=== PATIENT | male | born 1995 | race Hispanic/Latino ===

== ENCOUNTER 2025-03-16 11:56 | Emergency (ER) | payer SELFPAY ==
[2025-03-16 11:57] VITALS: BP 125/79; PULSE 86; RESP 16; TEMP 36.8; O2SAT 99; BMI 22.8
--- NOTE | 2025-03-16 12:05 | EDS_ITS ---
HPI History of Present Illness Chief Complaint: Eye Problem PFSH PFSH Allergy/AdvReac Type Severity Reaction Status Date / Time No Known Allergies Allergy Verified 03/16/25 11:59 Social History Smoking Status: Current every day smoker tobacco type: cigarettes EXAM Physical Exam Const Vital Signs: 03/16/25 11:57 Temperature 98.2 F Temperature Source Temporal Pulse Rate 86 Respiratory Rate 16 Blood Pressure 125/79 H Blood Pressure Mean 94 Pulse Ox 99 Oxygen Delivery Method Room Air MDM [facility] Narrative Medical decision making narrative: HISTORY OF PRESENT ILLNESS: Chief complaint: Eye foreign body 30-year-old male presents concern for foreign body left eye since Monday. Notes he thinks he may have gotten deodorant inside. This may be something stuck in his eye. Notes itchiness, redness tearing and AM discharge. He does not wear contacts. REVIEW OF SYSTEMS: Pertinent positives: Eye redness, itching and discharge Pertinent negatives: Decreased visual PHYSICAL EXAM: Nursing triage notes reviewed, Vital signs reviewed Constitutional: please see [facility] HENT: MMM Eyes: Pupils equal round and reactive to light, Extraocular muscles intact, visual acuity 20/25, visual de la o intact, fluorescein staining without signs of corneal abrasion or globe rupture. No obvious foreign body on lid eversion. Neck: No stridor, no JVD, full neck ROM Skin: No rash or lesions noted, no sign of preseptal cellulitis MEDICAL DECISION MAKING: Chief Complaint: please see HPI External records reviewed: Reviewed prior imaging Factors affecting care: none Social determinants of health: Primarily Faroese-speaking History obtained from others: [employer] architect used Consults: none [facility] Narrative: The patient was initially hemodynamically stable, afebrile and nontoxic- appearing. Exam consistent with conjunctivitis. No clinical evidence of globe rupture, foreign body or corneal abrasion I considered the following differential diagnosis: Globe rupture, eye foreign body, corneal abrasion, conjunctivitis Will give antimicrobial drops. Will give ophthalmology follow-up. The patient and/or family, caregivers express understanding. The patient and/or family, caregivers agrees with the plan. Shared decision making: I will have a discussion with the patient and or visitors regarding risk/benefits of further testing or admission. They will be made aware of of the risk/benefits inherent in this decision they will be given the opportunity to voice understanding. Total critical care time today provided was at least 0 minutes. This excludes separately billable procedures. Critical care time (if documented) is secondary to the patient having high probability of clinically significant/life th reatening deterioration in the patient's condition which required my urgent intervention. Impression: 1. Left eye redness 2. Acute conjunctivitis Dispo: discharge This note was generated with [employer] dictation software. It may contain incorrect words, spelling, and punctuation that were not noted in review of the chart prior to signing. Discharge Plan Triage Chief Complaint: Eye Problem ED Provider: Oc Garza Dx/Rx/DC Orders Primary Care Provider: Care Physician,No Primary Referrals: Care Physician,No Primary [Primary Care Provider] - Print Language: Ecuadorean
[2025-03-16] MEDS: Tetracaine 0.5% Ophthalmic Bottle 1 DRP EACH EYE (12:25)
[2025-03-16 13:34] VITALS: BP 122/70; PULSE 82; RESP 15; TEMP 36.8; O2SAT 100
== END 2025-03-16 13:35 | disposition home or self-care (01) ==
PROVIDERS: Emergency Provider Emergency Medicine; Visit Provider Emergency Medicine
DX: H10.32 Unspecified acute conjunctivitis, left eye (principal); F17.210 Nicotine dependence, cigarettes, uncomplicated
CPT/HCPCS: 99283